=== PATIENT | male | born 1960 | race Caucasian/White ===

== ENCOUNTER 2017-04-28 11:21 | Emergency (ER) | payer OTHER ==
[~2017-04-28] VITALS: Ht 177.8 cm; Wt 104.8 kg
[~2017-04-28 11:21] MED LIST: AMBIEN5 MG PO; CARDIZEM CD180 MG PO; CELEXA20 MG; COLACE100 MG PO; CYMBALTA60 MG PO; DULCOLAX5 MG PO; HYDROCODON-ACE1 EAC7 PO; KLONOPIN0.5 M1 PO; KLONOPIN1 M2; KLONOPIN1 MG PO; LIDODERM 5% P1 PATCH TD; MILK OF MAG PO; MIRALAX17 GM PO; OS-CAL 500+D C1 EAC1 PO; OXYCODONE HCL30 MG PO; OXYCODONE30 MG; OXYCONTIN60 MG PO; TRAZODONE HCL50 MG PO; TRICOR145 MG; TYLENOL REGULA325 MG PO; VIT B12 PO
[2017-04-28 14:52] VITALS: BP 96/71
== END 2017-04-28 15:00 | disposition home or self-care (01) ==
LOC: EME 11:21
DX: S30.0XXA Contusion of lower back and pelvis, initial encounter (principal); S09.90XA Unspecified injury of head, initial encounter; W01.0XXA Fall on same level from slipping, tripping and stumbling without subsequent striking against object, initial encounter; Y92.009 Unspecified place in unspecified non-institutional (private) residence as the place of occurrence of the external cause; I10 Essential (primary) hypertension; E78.5 Hyperlipidemia, unspecified; F32.9 Major depressive disorder, single episode, unspecified; Z98.1 Arthrodesis status
CPT/HCPCS: 70450; 72125; 72131; 72192; 93005; 99281; 99285; J1170; J3010; J7050

== ENCOUNTER 2017-12-07 16:29 | Observation (INO) | payer OTHER ==
[~2017-12-07] VITALS: Ht 177.8 cm; Wt 93.2 kg
[2017-12-07 17:57] LABS: BASOPHIL (%) 0.3 % (0-1); EOSINOPHIL (%) 0 % (0-5); HEMATOCRIT 39.8 % (38.0-50.0); IMMATURE GRANULOCYTE (%) 0.3 % (0.0-0.7); LYMPHOCYTE (%) 11.6 % (15-42); LYMPHOCYTE COUNT 0.8 K/uL (1.0-2.8); MCH 28.7 PG (29.0-34.0); MCHC 35.2 G/DL (30.0-36.0); MCV 81.7 FL (86-99); MONOCYTE (%) 4.1 % (3-12); MONOCYTE COUNT 0.3 K/uL (0-0.8); NEUTROPHIL (%) 83.7 % (45-76); NEUTROPHIL COUNT 6.1 K/uL (1.8-6.4); PLATELET COUNT 161 K/uL (156-360); RBC DIS.WIDTH-CV 12.9 % (11.8-14.6); RBC DIS.WIDTH-SD 38.7 % (39-53); RED BLOOD COUNT 4.87 M/uL (4.00-5.50); WHITE BLOOD COUNT 7.2 K/uL (4.1-10.2)
[2017-12-07 18:05] LABS: CHLORIDE 105 mEq/L (99-109); POTASSIUM 3.1 mEq/L (3.7-5.4); SODIUM 138 mEq/L (136-147)
[2017-12-07 18:07] LABS: GLUCOSE 114 mg/dL (70-99)
[2017-12-07 18:10] LABS: SERUM ETHYL ALCOHOL < 10 mg/dL
[2017-12-07 18:11] LABS: CREATININE 0.8 mg/dL (0.6-1.3); GFR ESTIMATE (CALCULATED) > 59 mL/min/ (58.99-99999)
[2017-12-07 18:12] LABS: UREA NITROGEN (BUN) 12 mg/dL (9-23)
[2017-12-07 18:14] LABS: ACETAMINOPHEN (TYLENOL) < 10 mcg/mL (10-30); SALICYLATE < 5.0 MG/DL (15-30)
[2017-12-07 18:24] LABS: TROP-I INTERPRETATION NEGATIVE; TROPONIN-I < 0.01 ng/mL (0.0-0.30)
[2017-12-07 22:13] LABS: APPEARANCE CLEAR ((CLEAR)); BILIRUBIN NEGATIVE; BLOOD NEGATIVE; COLOR YELLOW ((YELLOW)); GLUCOSE (STRIP) NEGATIVE; KETONES 20; LEUKOCYTES NEGATIVE; NITRITE NEGATIVE; PROTEIN (STRIP) 30; SPECIFIC GRAVITY 1.014 (1.000-1.030); UCUL ADDED? NO
[2017-12-07 22:24] LABS: AMPHETAMINE NEGATIVE (500 ng/mL); BARBITURATES NEGATIVE (200 ng/mL); BENZODIAZEPINES PRESUMPTIVE POSITIVE (150 ng/mL); BUPRENORPHINE PRESUMPTIVE POSITIVE (10 ng/mL); COCAINE PRESUMPTIVE POSITIVE (150 ng/mL); METHADONE NEGATIVE (200 ng/mL); METHAMPHETAMINE NEGATIVE (500 ng/mL); OPIATES (MORPHINE) PRESUMPTIVE POSITIVE (100 ng/mL); OXYCODONE PRESUMPTIVE POSITIVE (100 ng/mL); PHENCYCLIDINE NEGATIVE (25 ng/mL); PROPOXYPHENE NEGATIVE (300 ng/mL); THC CANNABINOIDS NEGATIVE (50 ng/mL); TRICYCLIC ANTIDEPRESSANTS NEGATIVE (300 ng/mL)
[2017-12-07 23:08] LABS: BENZODIAZEPINES, URINE SCREEN Negative (200 ng/mL)
[2017-12-07 23:58] VITALS: BP 146/87
[2017-12-08 02:56] VITALS: BP 126/91
[2017-12-08 05:59] LABS: CHLORIDE 107 MEQ/L (99-109); CREATININE 0.8 MG/DL (0.6-1.3); GFR ESTIMATE (CALCULATED) > 59 mL/min/ (58.99-99999); GLUCOSE 106 mg/dL (70-99); POTASSIUM 2.9 MEQ/L (3.7-5.4); SODIUM 142 MEQ/L (136-147); UREA NITROGEN (BUN) 12 mg/dL (9-23)
[2017-12-08 07:01] LABS: HEMATOCRIT 36.6 % (38.0-50.0); HEMOGLOBIN 12.4 G/DL (12.5-16.6); MCH 28.5 PG (29.0-34.0); MCHC 33.9 G/DL (30.0-36.0); MCV 84.1 FL (86-99); PLATELET COUNT 156 K/uL (156-360); RBC DIS.WIDTH-CV 13.3 % (11.8-14.6); RBC DIS.WIDTH-SD 41.1 % (39-53); RED BLOOD COUNT 4.35 M/uL (4.00-5.50); WHITE BLOOD COUNT 8.2 K/uL (4.1-10.2)
[2017-12-08 09:17] VITALS: BP 148/93
[2017-12-08 12:49] VITALS: BP 160/108
[2017-12-08] MEDS ORDERED: CARDIZEM CD,CA180 MG PO (15:03)
[2017-12-08 15:37] VITALS: BP 164/108
[2017-12-08 17:43] VITALS: BP 154/98
== END 2017-12-08 18:34 | disposition home or self-care (01) ==
LOC: EME 16:29 → EDOF 20:09 → ENRESERV 20:10 → 5WEST 23:53
PROVIDERS: Emergency Medicine; Hospitalist
DX: F11.23 Opioid dependence with withdrawal (principal); I10 Essential (primary) hypertension; G89.29 Other chronic pain; F43.20 Adjustment disorder, unspecified; M54.9 Dorsalgia, unspecified; M79.669 Pain in unspecified lower leg
CPT/HCPCS: 70450; 71046; 80048; 81003; 82140; 82948; 84132 91; 84484; 84999; 85025; 85027; 93005; 99281; 99285; G0378; G0480; J0360; J1650; J2060; J2405; J7030